=== PATIENT | female | born 1990 | race Caucasian/White ===

== ENCOUNTER 2017-03-11 11:49 | Emergency (ER) | payer BC, MEDICAID ==
[2017-03-11 13:01] LABS: ABSOLUTE EOSINOPHILS # (AUTO) 0.1 10^3/uL (0.0-0.6); ABSOLUTE MONOCYTES (AUTO) 0.6 10^3/uL (0.1-1.4); ABSOLUTE NEUT (AUTO) 7.4 10^3/uL (1.7-8.2); BASOPHILS % (AUTO) 0.3 % (0-2); HEMATOCRIT 38.3 % (36.0-47.0); HEMOGLOBIN 13.9 g/dL (12.0-15.5); HGB HCT DIFFERENCE 3.4; LYMPHOCYTES % (AUTO) 19.7 % (13-45); MEAN CORPUSCULAR HEMOGLOBIN 32.2 pg (27.0-33.4); MEAN CORPUSCULAR HGB CONC 36.2 g/dL (32.0-36.0); MEAN CORPUSCULAR VOLUME 89 fl (80-97); MONOCYTES % (AUTO) 6.2 % (3-13); RED BLOOD COUNT 4.31 10^6/uL (3.72-5.28); RED CELL DISTRIBUTION WIDTH 13.4 % (11.5-14.0); SEGMENTED NEUTROPHILS % (AUTO) 72.8 % (42-78); WHITE BLOOD COUNT 10.2 10^3/uL (4.0-10.5)
[2017-03-11 13:03] LABS: APPEARANCE,URINE CLOUDY; BILIRUBIN,URINE NEGATIVE (NEGATIVE); GLUCOSE, URINE NEGATIVE (NEGATIVE); KETONES,URINE TRACE mg/dL (NEGATIVE); LEUKOCYTE ESTERASE,URINE MODERATE (NEGATIVE); NITRITE,URINE NEGATIVE (NEGATIVE); PROTEIN,URINE 30 mg/dL (NEGATIVE); UROBILINOGEN,URINE NEGATIVE mg/dL (<2.0)
--- NOTE | 2017-03-11 13:04 | ER Document Report ---
ED General <FABIAN UNDERWOOD - Last Filed: 03/11/17 14:42> <JENIEFR JEREZ - Last Filed: 03/11/17 14:50> - General Mode of Arrival: Ambulatory Information source: Patient TRAVEL OUTSIDE OF THE [place] IN LAST 30 DAYS: No - HPI Onset: Other - 03/08/2017 <ERICH LORENZANA - Last Filed: 03/12/17 22:21> - General Chief Complaint: Vaginal Bleeding Stated Complaint: VAGINAL BLEEDING Time Seen by Provider: 03/11/17 12:24 Notes: Patient is a 26 year old female presenting to the emergency department complaining of vaginal bleeding. Patient states that she noticed the bleeding Saturday night/Saturday morning. [facility] and she informed that she passed clots and they told her to come to the emergency department. Patient denies cramping. The patient states her last period was about 2 months ago. Patient is A1. Patient currently takes Suboxone. (ERICH LORENZANA) - Related Data Allergies/Adverse Reactions: No Known Drug Allergies Allergy (Verified 03/11/17 12:02) Past Medical History - Social History Smoking Status: Current Every Day Smoker Cigarette use (# per day): Yes - 1 pack per day Chew tobacco use (# tins/day): No Smoking Education Provided: No Frequency of alcohol use: None Drug Abuse: Marijuana, Prescription drugs - Suboxone Family History: Reviewed & Not Pertinent Patient has suicidal ideation: No Patient has homicidal ideation: No Past Surgical History: Reports: Hx Orthopedic Surgery - knee - Immunizations Hx Diphtheria, Pertussis, Tetanus Vaccination: Yes - UNKNOWN <ERICH LORENZANA - Last Filed: 03/12/17 22:21> Review of Systems - Review of Systems Constitutional: No symptoms reported EENT: No symptoms reported Cardiovascular: No symptoms reported Respiratory: No symptoms reported Gastrointestinal: No symptoms reported Genitourinary: No symptoms reported Female Genitourinary: See HPI, Vaginal bleeding Musculoskeletal: No symptoms reported Skin: No symptoms reported Hematologic/Lymphatic: No symptoms reported Neurological/Psychological: No symptoms reported -: Yes All other systems reviewed and negative <REICH LORENZANA - Last Filed: 03/12/17 22:21> Physical Exam - General General appearance: Appears well, Alert In distress: None - HEENT Head: Normocephalic, Atraumatic Eyes: Normal Conjunctiva: Normal Pupils: PERRL - Respiratory Respiratory status: No respiratory distress - Cardiovascular Rhythm: Regular - Abdominal Inspection: Normal Distension: No distension Organomegaly: No organomegaly - Back Back: Normal - Extremities General upper extremity: Normal inspection, Normal ROM, Normal strength General lower extremity: Normal inspection, Normal ROM, Normal strength - Neurological Neuro grossly intact: Yes Cognition: Normal Orientation: AAOx4 Andrez Coma Scale Eye Opening: Spontaneous Andrez Coma Scale Verbal: Oriented [place] Coma Scale Motor: Obeys Commands Andrez Coma Scale Total: 15 Speech: Normal - Psychological Associated symptoms: Normal affect, Normal mood - Skin Skin Temperature: Warm Skin Moisture: Dry Skin Color: Normal <ERICH LORENZANA - Last Filed: 03/12/17 22:21> - Vital signs Vitals: Temp Pulse Resp BP Pulse Ox 99.3 F 82 16 136/93 H 100 03/11/17 12:02 03/11/17 12:02 03/11/17 12:02 03/11/17 12:02 03/11/17 12:02 Course - Laboratory Result Diagrams: 03/11/17 12:42 - Diagnostic Test Radiology reviewed: Reports reviewed - Ultrasound shows a large subchorionic bleed, an irregular gestational sac measuring approximately 7 weeks, no yolk sac and no pole. Suspected demise at 7 weeks. <FABIAN UNDERWOOD - Last Filed: 03/11/17 14:42> - Laboratory Result Diagrams: 03/11/17 12:42 <JENIFER JEREZ - Last Filed: 03/11/17 14:50> - Laboratory Result Diagrams: 03/11/17 12:42 <ERICH LORENZANA - Last Filed: 03/12/17 22:21> - Vital Signs Vital signs: Temp Pulse Resp BP Pulse Ox 97.5 F 59 L 16 107/69 100 03/11/17 14:38 03/11/17 14:38 03/11/17 14:38 03/11/17 14:38 03/11/17 14:38 - Laboratory Laboratory results interpreted by me: 03/11/17 03/11/17 03/11/17 12:41 12:42 12:42 MCHC 36.2 H Beta HCG, Quant 3799.90 H Urine Protein 30 H Urine Ketones TRACE H Urine Blood LARGE H Ur Leukocyte Esterase MODERATE H Discharge <FABIAN UNDERWOOD - Last Filed: 03/11/17 14:42> <JENIFER JEREZ - Last Filed: 03/11/17 14:50> <ERICH LORENZANA - Last Filed: 03/12/17 22:21> - Discharge Clinical Impression: Miscarriage Condition: Stable Disposition: HOME, SELF-CARE Additional Instructions: Miscarriage Impending: You have been evaluated for a possible miscarriage. At this time, it appears that the fetus has stopped growing. A miscarriage occurs when the fetus is abnormal. There is no medicine or treatment to prevent it. If bleeding is not severe, and if your pain can be controlled with medicine, you could complete the miscarriage at home. If that's not practical, or if the miscarriage doesn't progress spontaneously, we will arrange for a D&C procedure. You should rest in bed. Do not douche or have sex for at least a week, or until OK'd by the doctor. If you believe you've passed the fetus, collect it in a zip-lock plastic bag. Be sure to follow up with your doctor. Call the doctor or return for re- examination if there is an increase in bleeding or cramping, extreme weakness, fainting, fever, or passage of tissue. Follow-up with [facility] this week for recheck. Referrals: [facility] [Provider Group] - Follow up in 3-5 days Scribe Attestation: 03/11/17 14:45 I personally performed the services described in the documentation, reviewed and edited the documentation which was dictated to the scribe in my presence, and it accurately records my words and actions. (FABIAN UNDERWOOD) Scribe Documentation - Scribe Written by Mavis:: Mavis Loaiza 03/11/2017 1310 PM acting as scribe for :: Mikel <ERICH LORENZANA - Last Filed: 03/12/17 22:21>
--- NOTE | 2017-03-11 14:30 | RADIOLOGY REPORT (SQ) ---
EXAM DESCRIPTION: U/S OB TRANSVAGINAL W/O DOP COMPLETED DATE/TIME: 03/11/2017 2:14 pm REASON FOR STUDY: bleeding COMPARISON: None. TECHNIQUE: Transvaginal static and realtime grayscale images acquired of the pelvis. Additional raven cted spectral and color Doppler images recorded. All images stored on PACs. bHCG: Not available. LIMITATIONS: None. FINDINGS: UTERUS: No masses. No anomalies. GESTATIONAL SAC: Yes, irregular. YOLK SAC: No. POLE: No. RIGHT ADNEXA: Normal ovary with normal vascular flow. No adnexal free fluid. No adnexal masses. LEFT ADNEXA: Normal ovary with normal vascular flow. No adnexal free fluid. No adnexal masses. FREE FLUID: None. OTHER: Subchorionic bleed measuring 3.4 x 5.3 cm IMPRESSION: SUSPECT DEMISE AT 7 WEEKS. BHCG LEVEL NOT AVAILABLE FOR CORRELATION WITH US FINDINGS. CONSIDER F/U BHCG AND/OR ULTRASOUND FOR VERIFICATION AND TO EXCLUDE ECTOPIC . Trimester of : First - 0 to 13 weeks. TECHNICAL DOCUMENTATION: JOB ID: [id number] [employer]- All Rights Reserved
[2017-03-11 14:39] VITALS: BP 107/69
== END 2017-03-11 15:20 | disposition home or self-care (01) ==
LOC: ER 11:49
DX: O03.9 Complete or unspecified spontaneous abortion without complication (principal); F17.210 Nicotine dependence, cigarettes, uncomplicated; Z79.891 Long term (current) use of opiate analgesic
CPT/HCPCS: 99284; 86900; 86901; 36415; 86850; 84702; 85025; 81001; 76817; J2790